=== PATIENT | female | born 1955 | race Caucasian/White ===

== ENCOUNTER → 2021-09-20 | Outpatient (CLI) | payer MEDICARE, OTHER | LOC: LAB 09:19 | DX: Z20.822 Contact with and (suspected) exposure to COVID-19 (principal) ==

== ENCOUNTER → 2022-04-29 | Outpatient (CLI) | payer MEDICARE, OTHER | LOC: LAB 11:50 | DX: J02.9 Acute pharyngitis, unspecified (principal) ==

== ENCOUNTER → 2023-07-27 | Outpatient (CLI) | payer MEDICARE, OTHER ==
[~2023-07-27] VITALS: Ht 165.1 cm; Wt 72.7 kg
[2023-07-27 14:24] LABS: BASO # 0.02 K/mm3 (0.02-0.10); EOS # 0.06 K/mm3 (0.04-0.40); EOS % 0.5 % (1.0-5.0); HEMOGLOBIN 12.4 g/dL (12.5-16.0); LYMPH# 1.01 K/mm3 (1.50-4.00); MEAN CELL VOLUME 93 fl (78-100); MEAN CORPUSCULAR HEMOGLOBIN 29 pg (27-31); MEAN CORPUSCULAR HGB CONC 31 g/dL (33-37); MEAN PLATELET VOLUME 9.8 fl (7.4-10.4); MONO # 0.78 K/mm3 (0.20-0.80); NEU # 9.04 K/mm3 (1.40-6.50); PLATELET COUNT 223 K/mm3 (130-400); RED BLOOD COUNT 4.31 M/mm3 (4.10-5.30); RED CELL DISTRIBUTION WIDTH 13.3 % (11.5-14.5); WHITE BLOOD COUNT 10.9 K/mm3 (4.8-10.8)
[2023-07-27 14:33] LABS: ALBUMIN 4.2 g/dL (3.4-4.8); POTASSIUM 3.9 mmol/L (3.5-5.1)
[2023-07-27 14:34] LABS: CALCIUM 10.5 mg/dL (8.3-10.5)
[2023-07-27 14:36] LABS: TOTAL PROTEIN 7.7 g/dL (6.2-8.1)
[2023-07-27 14:37] LABS: TOTAL BILIRUBIN 1.8 mg/dL (0.2-1.2)
[2023-07-27 14:40] VITALS: BP 116/84
[2023-07-27 15:31] LABS: ERYTHROCYTE SEDIMENTATION RATE 44 mm/hr (0-30)
[2023-07-27 15:55] VITALS: BP 123/89
[2023-07-27 16:55] VITALS: BP 112/80
== END ==
LOC: LAB 14:08
PROVIDERS: Nurse Practitioner Family
DX: J36 Peritonsillar abscess (principal)
CPT/HCPCS: J1100; J7030

== ENCOUNTER → 2023-07-28 | Outpatient (CLI) | payer MEDICARE, OTHER | LOC: RAD 08:00 | DX: J36 Peritonsillar abscess (principal); J02.9 Acute pharyngitis, unspecified | CPT/HCPCS: Q9967 ==

== ENCOUNTER → 2024-07-15 | Outpatient (CLI) | payer MEDICARE, OTHER ==
[2024-07-15 15:01] LABS: BASO # 0.05 K/mm3 (0.02-0.10); EOS # 0.19 K/mm3 (0.04-0.40); EOS % 2.9 % (1.0-5.0); HEMOGLOBIN 11.8 g/dL (12.5-16.0); LYMPH# 3.22 K/mm3 (1.50-4.00); MEAN CELL VOLUME 89 fl (78-100); MEAN CORPUSCULAR HEMOGLOBIN 28 pg (27-31); MEAN CORPUSCULAR HGB CONC 31 g/dL (33-37); NEU # 2.59 K/mm3 (1.40-6.50); PLATELET COUNT 231 K/mm3 (130-400); RED BLOOD COUNT 4.28 M/mm3 (4.10-5.30); RED CELL DISTRIBUTION WIDTH 13.9 % (11.5-14.5); WHITE BLOOD COUNT 6.6 K/mm3 (4.8-10.8)
[2024-07-15 15:07] LABS: ALBUMIN 4.3 g/dL (3.4-4.8)
[2024-07-15 15:08] LABS: CALCIUM 9.7 mg/dL (8.3-10.5)
[2024-07-15 15:10] LABS: TOTAL PROTEIN 7.4 g/dL (6.2-8.1)
== END ==
LOC: LAB 14:43
PROVIDERS: Family Medicine
DX: E78.5 Hyperlipidemia, unspecified (principal); E55.9 Vitamin D deficiency, unspecified; I10 Essential (primary) hypertension

== ENCOUNTER → 2024-11-28 | Outpatient (CLI) | payer MEDICARE, OTHER | LOC: LAB 12:10 | DX: R30.9 Painful micturition, unspecified (principal) ==